=== PATIENT | female | born 1960 | race Caucasian/White ===

== ENCOUNTER 2020-03-11 13:49 | Inpatient (IN) | payer OTHER, SELFPAY ==
[2020-03-11] VITALS (56 sets, daily range): BP systolic 115–139; BP diastolic 72–95; PULSE 18–251; RESP 15–37; TEMP 36.8–37.7; O2SAT 78–98
--- NOTE | ~2020-03-11 | US_ITS ---
EXAMINATION: US right upper quadrant EXAM DATE: 03/16/2020 11:19 INDICATION: Right upper quadrant pain. TECHNIQUE: Multiple grayscale and Doppler images of the abdomen right upper quadrant were obtained (b y a technologist who performed the scan) and subsequently reviewed. There is no prior study for opal chatterjee. FINDINGS: The pancreatic head and body are normal in appearance. The pancreatic tail is not visualized. The l iver has normal echogenicity and contour. There are no focal liver lesions identified. There is no evidence of intrahepatic biliary duct dilation. Portal venous flow was seen in the hepatopedal, nor mal direction and has normal Doppler waveform. No right-sided hydronephrosis. Common bile duct measures 4 mm, which is normal. The gallbladder wall is normal in thickness, with ex pected amount of distention. No sonographic evidence of pericholecystic fluid. There is cholelithia sis. Technologist performing exam reports patient did not demonstrate sonographic Juarez's sign. P kendrick note that this sign is less reliable in patients who have received pain medication. IMPRESSION: 1. Cholelithiasis. Reviewed, dictated and finalized at location B. TIC DESIGN APPLIER IMPRESSION: 1. Cholelithiasis.
--- NOTE | ~2020-03-11 | XR_ITS ---
XR chest 1V portable DATE: 03/11/2020 14:55 INDICATION: Fever, dry cough. Positive Covid. TECHNIQUE: Portable upright AP chest on 03/11/2020 at 1454 hours COMPARISON: 01/11/2014 PA and lateral chest FINDINGS: There are patchy infiltrates in both mid and lower lung zones, relatively sparing the apice s. No pleural effusion or pulmonary vascular congestion or pneumothorax. Normal heart size. No hilar or mediastinal enlargement is evident. IMPRESSION: Patchy bilateral mid and lower lung infiltrates consistent with bilateral pneumonia Reviewed, dictated and finalized at location A. IMPRESSION: Patchy bilateral mid and lower lung infiltrates consistent with liz ateral pneumonia
--- NOTE | ~2020-03-11 | NM_ITS ---
NM pulmonary perfusion INDICATION: Cough, fever and low oxygen saturation. TECHNIQUE: Ventilation scan not performed. 4.9 MCi Tc 99m MAA was injected intravenously for perfusio n images. Multiple images were then acquired. COMPARISON: Chest x-ray dated 03/11/2020 FINDINGS: Comparison chest x-ray demonstrates pneumonia in the mid and lower lung zones. There are sm [id number] bilateral lateral perfusion abnormality of the left mid, upper and lower as well a s the right mid and lower lung. IMPRESSION: 1: Multiple bilateral perfusion defects corresponding to chest x-ray abnormalities. Reviewed, dictated and finalized at location A. IMPRESSION: 1: Multiple bilateral perfusion defects corresponding to chest x-ray abnormalit ies.
--- NOTE | ~2020-03-11 | XR_ITS ---
EXAMINATION: XR chest 1V portable INDICATION: Pneumonia and shortness of breath TECHNIQUE: Portable AP chest at 0856 hours COMPARISON: 03/11/2020 FINDINGS: There are diffuse opacities of the lungs without significant change. No pleural effusion or pneumothorax is identified. The cardiomediastinal silhouette is stable. IMPRESSION: 1. Stable diffuse lung disease, consistent with pneumonia. Reviewed, dictated and finalized at location A.
[2020-03-11 14:40] LABS: Basophils Percent Auto 0.1 % (0.2-1.2); Hematocrit 44.3 % (37.0-47.0); Immature Granulocyte Absolute 0.04 K/mm3 (0.00-0.031); Immature Granulocyte Percent A 0.6 % (0-0.5); Lymphocytes Absolute Auto 0.69 K/mm3 (0.9-3.2); Lymphocytes Percent Auto 9.7 % (18.3-44.2); Mean Corpuscular HGB Conc 33.9 g/dl (32-36); Mean Corpuscular Hemoglobin 30.7 pg (26-34); Mean Corpuscular Volume 90.6 fl (80-100); Mean Platelet Volume 9.9 fl (7.4-10.4); Monocytes Absolute Auto 0.5 K/mm3 (0.1-0.6); Neutrophils Absolute Auto 5.9 K/mm3 (1.3-6.7); Neutrophils Percent Auto 82.6 % (45.5-73.1); Platelet Count Result 258 k/mm3 (150-375); Red Blood Count 4.89 M/mm3 (4.2-5.4); Red Cell Distribution Width 13.4 % (11.5-14.5); White Blood Count 7.2 K/mm3 (4.5-10.0)
[2020-03-11 14:46] LABS: Add Urine Microscopic? YES; Appearance Urine Cloudy (Clear); Bacteria Urine Trace /hpf; Bilirubin Urine Negative (Negative); Blood Urine 1+ (Negative); Color Urine Yellow (Yellow); Glucose Urine UA Negative (Negative); Ketones Urine Trace mg/dL (Negative); Leukocyte Esterase Ur Negative LEU/UL (Negative); Mucus Urine Rare /lpf; Nitrate Urine Negative (Negative); Protein Urine 2+ mg/dL (Negative); RBC Urine 0-2 /hpf (0-2); Squamous Epithelial Cell Urine Occasional /hpf (Few); Urobilinogen Urine Negative mg/dL (<2.0); WBC Urine 0-3 /hpf
[2020-03-11 14:50] LABS: D Dimer 1.12 ug/mL (<0.48)
[2020-03-11 14:53] LABS: Alanine Aminotransferase 63 U/L (4-35); Albumin Level 3.7 g/dL (3.5-5.1); Alkaline Phosphatase 109 U/L (38-126); Anion Gap 10 mmol/L (8-16); Aspartate Amino Transferase 71 U/L (14-36); Blood Urea Nitrogen 12 mg/dL (7-17); Calcium 8.6 mg/dL (8.4-10.2); Carbon Dioxide 30 mmol/L (22-30); Chloride 97 mmol/L (98-107); Estimated CRCL calculation 67 ml/min; Estimated Glomerular Filt Rate > 60; Glucose 128 mg/dL (65-105); Potassium 3.2 mmol/L (3.4-5.0); Sodium 137 mmol/L (137-145)
--- NOTE | 2020-03-11 15:31 | PC.NURSE ---
Pt to CT at this time. This RN to admin NS bolus as ordered upon return from CT. Pt updated.
[2020-03-11] MEDS: SODIUM CHLORIDE 0.9% IV 1,000 ML 999 ML IV CONT (15:51)
--- NOTE | 2020-03-11 16:15 | ED.FEVER ---
HPI - Fever General Chief Complaint: Fever Stated Complaint: Covid + Time Seen by Provider: 03/11/20 14:01 Source: patient Mode of arrival: ambulatory Limitations: no limitations History of Present Illness HPI Narrative: Patient presents with chief complaints of fatigue and intermittent fever over the past 2 weeks. Patient states on the 16 she tested positive for Covid and has not yet had 3 days fever free. So she does not feel relief from quarantine. She states that this time she does not feel short of breath nor have chest pain. She states she has been taking Tylenol continuously for her fever but has not been taking ibuprofen. Patient states that she feels that she should be improving more so than she has been has not began to the emergency department. Patient states she has been eating as much as normal and has been trying to drink fluids. Related Data Home Medications Medication Instructions Recorded Confirmed No Home Medications 03/11/20 Allergies Allergy/AdvReac Type Severity Reaction Status Date / Time aspirin Allergy Mild Other Verified 03/11/20 14:07 Penicillins Allergy Mild Other Verified 03/11/20 14:07 codeine Allergy Gastrointestinal Verified 03/11/20 14:07 Upset iodine Allergy Rash Verified 03/11/20 14:08 Latex, Natural Rubber Allergy Rash Verified 03/11/20 14:07 Review of Systems Review of Systems: Narrative: CONSTITUTIONAL: Reports fatigue and intermittent fever denies chills, or sweats. EYES: Denies visual changes, redness, or discharge. ENT: Denies rhinorrhea, congestion, sore throat, or otalgia. CARDIOVASCULAR: Denies chest pain, palpitations, or edema. RESPIRATORY: Denies cough or dyspnea. GASTROINTESTINAL: Denies abdominal pain, nausea, vomiting, or diarrhea. GENITOURINARY: Denies dysuria or hematuria. SKIN: Denies rash or itching. MUSCULOSKELETAL: Denies back pain, myalgia, or joint pain NEUROLOGIC: Denies headache, numbness, dizziness, or weakness. PSYCHIATRIC: Denies anxiety or depression. Exam Narrative: Exam Narrative: GENERAL: Well-appearing, well-nourished. HEAD: Normocephalic, atraumatic. EYES: PERRLA and EOMI. ENT: Nares clear, no rhinorrhea or epistaxis. Mucous membranes moist. Bilateral TMs pearly cha nonbulging NECK: Supple. No adenopathy or masses. No vertebral tenderness or loss of ROM. CHEST: Clear to auscultation. No respiratory distress. No wheezes rales or rhonchi. Not tachypneic. Patient's oxygen saturation is going up to 97% on room air while sitting up taking deep breaths. HEART: Regular rate and rhythm. ABDOMEN: Soft, nontender, nondistended, normal active bowel sounds. No bruises noted. EXTREMITIES: No acute changes in ROM. No edema. SKIN: Warm, dry, no rash. NEURO: No focal deficits. Alert and oriented x3. PSYCH: Normal mood and affect. Course Vital Signs Vital signs: Vital Signs Temperature 98.3 F 03/11/20 13:59 Pulse Rate 18 L 03/11/20 13:59 Respiratory Rate 20 03/11/20 13:59 Blood Pressure 131/90 03/11/20 13:59 Pulse Oximetry 93 03/11/20 13:59 Temperature 98.3 F 03/11/20 13:59 Pulse Rate 120 H 03/11/20 20:02 Respiratory Rate 26 H 03/11/20 20:02 Blood Pressure 133/84 03/11/20 19:16 Pulse Oximetry 92 03/11/20 20:02 MDM - Fever MDM Narrative Medical decision making narrative: Patient tachycardic and D-dimer elevated patient is allergic to iodine so she must have VQ scan and lieu of CTA. Patient is not hypoxic and ambulates without difficulty. Patient is receiving fluids. Patient denies any other needs or concerns at this time. Consult with Dr. Townsend for patient admission as I have concerns because the patient drops into hypoxic areas in the high 80s and 90s especially with ambulation. Although the patient states she does not feel short of breath she is both tachycardic as well as showing low SPO2 numbers. Dr. Townsend states the patient is not a candidate for remdesivir or Decadron at this time. He ac
--- NOTE | 2020-03-11 20:06 | PC.NURSE ---
1899 - Pt ambulated to restroom. Upon return to ER room increased SOB reported and O2 saturation on RA noted to be 86%, HR 125. Pt placed on 2L NC and O2 saturation at rest 98%. 1999 - Pt ambulated to restroom and back to ER stretcher. Pt's O2 saturation noted to 88% on RA after exertion, HR 125. HR decreased to 118 and O2 saturation returned to 94% on RA.
[2020-03-11] MEDS: POTASSIUM CHLORIDE 20 MEQ PACKET (FOR LIQUID) 40 MEQ PO (21:45)
--- NOTE | 2020-03-11 22:05 | ECG_ITS ---
Measurements Intervals [place] Rate: 232 P: [place]: 0 QRS: 34 QRSD: 188 T: 0 QT: 175 QTc: 344 Interpretive Statements SUPRAVENTRICULAR TACHYCARDIA INCOMPLETE RIGHT BUNDLE BRANCH BLOCK ST ABNORMALITY IN ANTEROLAT/HIGH LAT LEADS- CONSIDER ISCHEMIA OR PROBABLY RATE RELATED BASELINE WANDER- AVL, AVF ABNORMAL ECG Electronically Signed On 03-12-2020 7:09:10 CDT by Giuseppe Kwon D.O.
[2020-03-11] MEDS: ADENOSINE IV SOLN 6 MG/2 ML VIAL IV PUSH (22:18)
[2020-03-11] MEDS: SODIUM CHLORIDE 0.9% IV 1,000 ML 999 ML (22:19)
[2020-03-11] MEDS: METOPROLOL TARTRATE INJ 5 MG/5 ML VIAL (22:21)
[2020-03-11] MEDS: METOPROLOL TARTRATE INJ 5 MG/5 ML VIAL 2.5 MG IV PUSH (22:27)
--- NOTE | 2020-03-11 22:33 | ECG_ITS ---
Measurements Intervals [place] Rate: 112 P: 42 NE: 124 QRS: 54 QRSD: 105 T: 13 QT: 328 QTc: 448 Interpretive Statements SINUS TACHYCARDIA INCOMPLETE RIGHT BUNDLE BRANCH BLOCK BORDERLINE T WAVE ABNORMALITY- INFERIOR LEADS BASELINE WANDER- I, II, III, V2 ABNORMAL ECG Electronically Signed On 03-12-2020 7:10:07 CDT by Giuseppe Kwon D.O.
--- NOTE | 2020-03-11 22:45 | PM.IMHP ---
H&P: HPI History of Present Illness Date/Time: 03/11/20 22:45 Chief complaint: COVID Pneumonia Narrative: This is a 59-year-old female with no significant past medical history who presented to the hospital [facility] with intermittent fevers, increased shortness of breath, dry sporadic cough and generalized weakness for the past 2 weeks. Associated symptoms included diarrhea and diaphoresis. The patient tested positive for stuart virus on February 28, 2020. the patient was evaluated emergency room and did not require any supplemental oxygen. She was found to be tachycardic with heart rate in the 120s. D-dimer was elevated and the patient underwent a V/Q study as she is allergic to iodine. V/Q scan demonstrated multiple bilateral perfusion defects corresponding to chest x-ray abnormalities. chest x-ray revealed patchy bilateral mid and lower lung infiltrates consistent with bilateral pneumonia. the patient was treated with oral potassium secondary to hypokalemia and shortly afterwards developed supraventricular tachycardia. She was treated with adenosine 6 mg as well as metoprolol IV which converted the patient back into a sinus rhythm. During her episode of SVT the patient did experience palpitations but denied any significant chest pain. She has no other complaints. Review of Systems Review of Systems: All systems reviewed & are unremarkable except as noted in HPI and below PMFSH Surgical History Surgical History History of bilateral knee replacement Social History Social History Smoking status: Never smoker Alcohol intake: never Substance use: never Substance use type: does not use Spiritual care concerns: No Comments Past medical/surgica/family medical histories are reviewed and noncontributory. Meds Home Medications and Allergies Home Medications Medication Instructions Recorded Confirmed Type Brittany 128 1 drp OPHTHALMIC (EYE) QID 03/13/20 03/13/20 History apixaban 5 mg PO BID #60 tablet 03/16/20 Rx apixaban [Eliquis] 10 mg PO Q12HR #22 tablet 03/16/20 Rx benzonatate 100 mg PO BID PRN #20 cap 03/16/20 Rx guaifenesin 600 mg PO BID #125 ml 03/16/20 Rx levofloxacin 750 mg PO DAILY #5 tablet 03/16/20 Rx Allergies Allergy/AdvReac Type Severity Reaction Status Date / Time aspirin Allergy Mild Other Verified 03/14/20 10:34 Penicillins Allergy Mild Other Verified 03/14/20 10:34 codeine Allergy Gastrointestinal Verified 03/14/20 10:34 Upset iodine Allergy Rash Verified 03/14/20 10:34 Latex, Natural Rubber Allergy Rash Verified 03/14/20 10:34 Vital Signs Vital Signs - 24 hr 03/11/20 13:59 03/11/20 14:05 03/11/20 14:15 Temperature 36.8 C Pulse Rate 114 H 111 H 112 H Respiratory Rate 19 20 18 Blood Pressure 128/95 H 133/95 H Pulse Oximetry 94 94 92 03/11/20 14:17 03/11/20 14:30 03/11/20 14:36 Temperature Pulse Rate 111 H 108 H Respiratory Rate 22 H 17 Blood Pressure Pulse Oximetry 92 94 92 03/11/20 15:34 03/11/20 15:45 03/11/20 16:00 Temperature Pulse Rate 109 H 110 H 112 H Respiratory Rate 23 H 21 H 22 H Blood Pressure Pulse Oximetry 93 90 93 03/11/20 16:15 03/11/20 16:19 03/11/20 16:30 Temperature Pulse Rate 107 H 105 H 108 H Respiratory Rate 24 H 22 H 26 H Blood Pressure 129/89 Pulse Oximetry 90 93 92 03/11/20 16:31 03/11/20 16:45 03/11/20 16:46 Temperature Pulse Rate 104 H 112 H 110 H Respiratory Rate 21 H 19 24 H Blood Pressure 126/84 126/88 Pulse Oximetry 93 93 89 L 03/11/20 17:01 03/11/20 17:02 03/11/20 17:15 Temperature Pulse Rate 104 H 105 H 106 H Respiratory Rate 22 H 24 H 22 H Blood Pressure 129/82 Pulse Oximetry 92 92 92 03/11/20 17:16 03/11/20 17:30 03/11/20 17:31 Temperature Pulse Rate 104 H 107 H 105 H Respiratory Rate 30 H 22 H 37 H Blood Pressure 126/79 123/81 Pulse Oximetry
--- NOTE | 2020-03-11 22:48 | PC.NURSE ---
2220 - Pt's HR noted to be 250, SVT. MD aware. EKG and NS ordered. pt reports feeling a flutter in her chest but denies any pain. No PMH per pt.
--- NOTE | 2020-03-11 22:56 | PC.NURSE ---
JESÚS faxed to ICU
--- NOTE | 2020-03-11 23:13 | PC.NURSE ---
Report called to [facility].
[2020-03-12] VITALS (14 sets, daily range): BP systolic 107–138; BP diastolic 73–88; PULSE 85–115; RESP 16–25; TEMP 35.7–37.8; O2SAT 88–96; BMI 27.4
--- NOTE | 2020-03-12 00:02 | ADMGEN ---
This patient, Viri Torres, was admitted to Intensive Care Unit-6. Patient/family oriented to hospital policies and general routines including ID bracelet, bed and alarms, visiting hours, pain management, procedures, bathroom and other care routines, personal items, smoking policy, room service/diet, and visiting hours. Information on how to activate the Rapid Response Team has been discussed. Patient/Family are encouraged to report perceived risks to care and to ask questions if they do not understand what they are told or what they should do.
[2020-03-12] MEDS: ACETAMINOPHEN 500 MG TABLET 1000 MG PO ×4 (03:43→20:43)
[2020-03-12 04:33] LABS: Alanine Aminotransferase 77 U/L (4-35)
[2020-03-12] MEDS: BENZONATATE 100 MG CAPSULE PO (10:00)
[2020-03-12] MEDS: DEXAMETHASONE SOD PHOS INJ 4 MG/ML VIAL 6 MG IV PUSH (10:01)
[2020-03-12 10:03] LABS: Anion Gap 10 mmol/L (8-16); Blood Urea Nitrogen 12 mg/dL (7-17); Calcium 8.1 mg/dL (8.4-10.2); Carbon Dioxide 20 mmol/L (22-30); Chloride 110 mmol/L (98-107); Estimated CRCL calculation 73 ml/min; Estimated Glomerular Filt Rate > 60; Glucose 108 mg/dL (65-105); Potassium 3.5 mmol/L (3.4-5.0); Sodium 140 mmol/L (137-145)
--- NOTE | 2020-03-12 14:50 | PC.NURSE ---
Patient deciding if to take Remdesivir.
--- NOTE | 2020-03-12 16:51 | PM.IMPN ---
Progress Note: A&P Assessment and Plan (1) Pneumonia due to COVID-19 virus: Code(s): U07.1 - COVID-19; J12.89 - Other viral pneumonia Status: Acute Assessment and Plan: 03/12/20 16:51 patient is a 59-year-old female was positive COVID-19 on 02/27 and since then patient having fever fatigue and hypoxia with exertion however at rest patient does not require any oxygen, we have started the patient on dexamethasone and remdesivir even though sees outside the window the treatment an effort to to help patient improve faster, patient being hypoxic with exertion and elevated D-dimer because scan was done which does show the probability of pulmonary emboli, and patient with COVID him high risk of pulmonary emboli will start the patient on Lovenox, emergency depart patient was tachycardia adenosine was negative this is all her SVT, most likely secondary to hypoxia fever and fatigue, patient has remained stable, will continue to monitor the the plan is to have 2 days of without fever and on room air before discharging home, once clinically stable will have a PT OT evaluate the patient. (2) Sepsis: Qualifiers: Sepsis type: sepsis due to unspecified organism Sepsis acute organ dysfunction status: without acute organ dysfunction Qualified Code(s): A41.9 - Sepsis, unspecified organism Code(s): A41.9 - Sepsis, unspecified organism Status: Acute Assessment and Plan: most likely secondary to COVID-19 pneumonia (3) Supraventricular tachycardia: Code(s): I47.1 - Supraventricular tachycardia Status: Acute Assessment and Plan: most likely secondary to fever fatigue and hypoxia patient was treated with adenosine, now on metoprolol will monitor (4) Elevated d-dimer: Code(s): R79.89 - Other specified abnormal findings of blood chemistry Status: Acute Assessment and Plan: V/Q scan shows pulmonary emboli and patient with a COVID are at high risk of blood clot will treat with Lovenox and further recommendation to Subjective Date/time seen: 03/12/20 16:51 patient is a 59-year-old female was positive COVID-19 on 02/27 and since then patient having fever fatigue and hypoxia with exertion however at rest patient does not require any oxygen, we have started the patient on dexamethasone and remdesivir even though sees outside the window the treatment an effort to to help patient improve faster, patient being hypoxic with exertion and elevated D-dimer because scan was done which does show the probability of pulmonary emboli, and patient with COVID him high risk of pulmonary emboli will start the patient on Lovenox, emergency depart patient was tachycardia adenosine was negative this is all her SVT, most likely secondary to hypoxia fever and fatigue, patient has remained stable, will continue to monitor the the plan is to have 2 days of without fever and on room air before discharging home, once clinically stable will have a PT OT evaluate the patient. Review of Systems Review of Systems: All systems reviewed & are unremarkable except as noted in HPI and below Exam Narrative: Exam Narrative: Patient is comfortable, NAD HEENT: eyes are clear and none icteric LUNGS: normal respiratory effort ABD: not distended Lower extremities: no edema SKIN: nonjaundiced Neuro: grossly intact and normal speech. Objective Data Vital Signs Vital Signs: Vital Signs - 24 hr 03/11/20 17:01 03/11/20 17:02 03/11/20 17:15 Temperature Pulse Rate 104 H 105 H 106 H Respiratory Rate 22 H 24 H 22 H Blood Pressure 129/82 Pulse Oximetry 92 92 92 03/11/20 17:16 03/11/20 17:30 03/11/20 17:31 Temperature Pulse Rate 104 H 107 H 105 H Respiratory Rate 30 H 22 H 37 H Blood Pressure 126/79 123/81 Pulse Oximetry 91 91 91 03/11/20 17:45 03/11/20 17:46 03/11/20 18:00 Temperature Pulse Rate 112 H 107 H 112 H Respiratory Rate 23 H 33 H 21 H Blood Pres
[2020-03-12] MEDS: REMDESIVIR 200 MG/NS 250 ML 200 MG/250 ML BAG 250 MG IVPB (18:27)
[2020-03-12] MEDS: ENOXAPARIN 80 MG/0.8 ML SYRINGE 73 MG SUB-Q (18:30)
[2020-03-13] VITALS (10 sets, daily range): BP systolic 121–142; BP diastolic 82–96; PULSE 73–104; RESP 16–21; TEMP 35.7–36.8; O2SAT 93–97
[2020-03-13] MEDS: ACETAMINOPHEN 500 MG TABLET 1000 MG PO (03:50)
[2020-03-13 04:32] LABS: Alanine Aminotransferase 136 U/L (4-35)
[2020-03-13] MEDS: ENOXAPARIN 80 MG/0.8 ML SYRINGE 73 MG SUB-Q ×2 (05:26→17:30)
[2020-03-13] MEDS: BENZONATATE 100 MG CAPSULE PO ×2 (08:26→20:10)
[2020-03-13] MEDS: DEXAMETHASONE SOD PHOS INJ 4 MG/ML VIAL 6 MG IV PUSH (08:26)
[2020-03-13 11:16] LABS: Hematocrit 43.1 % (37.0-47.0); Hemoglobin 14.7 g/dL (12.0-15.0); Mean Corpuscular HGB Conc 34.1 g/dl (32-36); Mean Corpuscular Hemoglobin 30.4 pg (26-34); Mean Corpuscular Volume 89.2 fl (80-100); Platelet Count Result 368 k/mm3 (150-375); Red Blood Count 4.83 M/mm3 (4.2-5.4); Red Cell Distribution Width 13.3 % (11.5-14.5); White Blood Count 8.8 K/mm3 (4.5-10.0)
[2020-03-13 11:27] LABS: Anion Gap 9 mmol/L (8-16); Blood Urea Nitrogen 13 mg/dL (7-17); Calcium 8.9 mg/dL (8.4-10.2); Carbon Dioxide 28 mmol/L (22-30); Chloride 105 mmol/L (98-107); Estimated CRCL calculation 84 ml/min; Estimated Glomerular Filt Rate > 60; Glucose 166 mg/dL (65-105); Potassium 3.6 mmol/L (3.4-5.0); Sodium 142 mmol/L (137-145)
--- NOTE | 2020-03-13 16:10 | PC.NURSE ---
This patient, Viri Torres, was transferred to [facility] on 03/13/20 at 1610 via wheelchair. Personal belongings sent with patient. Report given to JUAN JOSE Romano. Appropriate documentation sent with patient.
--- NOTE | 2020-03-13 16:14 | PC.NURSE ---
This patient, Viri Torres, was received from ICU on 03/13/20 at 1614. Personal belongings list checked and signed. Patient/family oriented to unit policies and routines
--- NOTE | 2020-03-13 16:15 | PM.IMPN ---
Progress Note: A&P Assessment and Plan (1) Pneumonia due to COVID-19 virus: Code(s): U07.1 - COVID-19; J12.89 - Other viral pneumonia Status: Acute Assessment and Plan: 03/13/20 16:15 patient is a 59-year-old female was positive COVID-19 on 02/27 and since then patient having fever fatigue and hypoxia with exertion however at rest patient does not require any oxygen, we have started the patient on dexamethasone and remdesivir even though she is outside the window of the treatment in an effort to to help patient improve faster, patient being hypoxic with exertion and elevated D-dimer, V/Q scan was done which does showed the probability of pulmonary emboli, and patient with COVID has high risk of pulmonary emboli will start the patient on Lovenox, will switch her over to oral anticoagulation tomorrow after discussing with primary health care nurse, in emergency depart patient was tachycardia adenosine was given for SVT, and heart rate tranded down, most likely secondary to hypoxia fever and fatigue, patient has remained stable, will continue to monitor the the plan is to have 2 days of without fever and on room air before discharging home, once clinically stable will have a PT OT evaluate the patient. patient clinically stable will transfer the patient out of ICU to medical floor. (2) Sepsis: Qualifiers: Sepsis acute organ dysfunction status: without acute organ dysfunction Sepsis type: sepsis due to unspecified organism Qualified Code(s): A41.9 - Sepsis, unspecified organism Code(s): A41.9 - Sepsis, unspecified organism Status: Acute Assessment and Plan: most likely secondary to COVID-19 pneumonia (3) Supraventricular tachycardia: Code(s): I47.1 - Supraventricular tachycardia Status: Acute Assessment and Plan: most likely secondary to fever fatigue and hypoxia patient was treated with adenosine, now on metoprolol will monitor (4) Elevated d-dimer: Code(s): R79.89 - Other specified abnormal findings of blood chemistry Status: Acute Assessment and Plan: V/Q scan shows pulmonary emboli and patient with a COVID are at high risk of blood clot will treat with Lovenox and further recommendation to Additional Plan date of service was March 11, 2020 at approximately 10:00 p.m. Subjective Date/time seen: 03/13/20 16:15 patient is a 59-year-old female was positive COVID-19 on 02/27 and since then patient having fever fatigue and hypoxia with exertion however at rest patient does not require any oxygen, we have started the patient on dexamethasone and remdesivir even though she is outside the window of the treatment in an effort to to help patient improve faster, patient being hypoxic with exertion and elevated D-dimer, V/Q scan was done which does showed the probability of pulmonary emboli, and patient with COVID has high risk of pulmonary emboli will start the patient on Lovenox, will switche her over to oral anticoagulation tomorrow after discussing with primary health care nurse, in emergency depart patient was tachycardia adenosine was given for SVT, and heart rate tranded down, most likely secondary to hypoxia fever and fatigue, patient has remained stable, will continue to monitor the the plan is to have 2 days of without fever and on room air before discharging home, once clinically stable will have a PT OT evaluate the patient. Review of Systems Review of Systems: All systems reviewed & are unremarkable except as noted in HPI and below Exam Narrative: Exam Narrative: Patient is comfortable, NAD HEENT: eyes are clear and none icteric LUNGS: normal respiratory effort ABD: not distended Lower extremities: no edema SKIN: nonjaundiced Neuro: grossly intact and normal speech. Objective Data Vital Signs Vital Signs: Vital Signs - 24 hr 03/12/20 18:00 03/12/20 20:00 03/12/20 22:00 Temperature 97.5 F L Pulse Rate 97 112 H 99 Re
[2020-03-13] MEDS: REMDESIVIR 100 MG/NS 250 ML 100 MG/250 ML BAG 150 MG IVPB (17:30)
[2020-03-13] MEDS: SODIUM CHLORIDE 2% OP SOLN 15 ML BTL 1 DROP EACH EYE ×2 (17:30→20:11)
[2020-03-14] VITALS (7 sets, daily range): BP systolic 117–148; BP diastolic 75–97; PULSE 75–126; RESP 14–16; TEMP 36.3–36.7; O2SAT 93–95
[2020-03-14] MEDS: ENOXAPARIN 80 MG/0.8 ML SYRINGE 73 MG SUB-Q ×2 (05:38→18:35)
[2020-03-14 06:19] LABS: Basophils Percent Auto 0.2 % (0.2-1.2); Hematocrit 40.8 % (37.0-47.0); Immature Granulocyte Percent A 1.1 % (0-0.5); Lymphocytes Absolute Auto 0.85 K/mm3 (0.9-3.2); Lymphocytes Percent Auto 9.1 % (18.3-44.2); Mean Corpuscular HGB Conc 34.3 g/dl (32-36); Mean Corpuscular Hemoglobin 30.2 pg (26-34); Mean Corpuscular Volume 88.1 fl (80-100); Mean Platelet Volume 10.2 fl (7.4-10.4); Monocytes Absolute Auto 0.6 K/mm3 (0.1-0.6); Monocytes Percent Auto 6.3 % (2.6-8.5); Neutrophils Absolute Auto 7.8 K/mm3 (1.3-6.7); Neutrophils Percent Auto 83.3 % (45.5-73.1); Platelet Count Result 400 k/mm3 (150-375); Red Blood Count 4.63 M/mm3 (4.2-5.4); Red Cell Distribution Width 13.2 % (11.5-14.5); White Blood Count 9.3 K/mm3 (4.5-10.0)
[2020-03-14 06:26] LABS: Alanine Aminotransferase 94 U/L (4-35)
[2020-03-14 06:28] LABS: Alanine Aminotransferase 91 U/L (4-35); Alkaline Phosphatase 110 U/L (38-126); Anion Gap 3 mmol/L (8-16); Aspartate Amino Transferase 52 U/L (14-36); Bilirubin,Total 0.6 mg/dL (0.2-1.3); Blood Urea Nitrogen 14 mg/dL (7-17); Calcium 8.7 mg/dL (8.4-10.2); Carbon Dioxide 36 mmol/L (22-30); Chloride 103 mmol/L (98-107); Estimated CRCL calculation 84 ml/min; Estimated Glomerular Filt Rate > 60; Glucose 132 mg/dL (65-105); Potassium 3.8 mmol/L (3.4-5.0); Sodium 142 mmol/L (137-145)
[2020-03-14] MEDS: DEXAMETHASONE SOD PHOS INJ 4 MG/ML VIAL 6 MG IV PUSH (08:59)
[2020-03-14] MEDS: SODIUM CHLORIDE 2% OP SOLN 15 ML BTL 1 DROP EACH EYE ×2 (08:59→18:35)
[2020-03-14] MEDS: BENZONATATE 100 MG CAPSULE PO (09:11)
--- NOTE | 2020-03-14 16:14 | PM.IMPN ---
Progress Note: A&P Assessment and Plan (1) Pneumonia due to COVID-19 virus: Code(s): U07.1 - COVID-19; J12.89 - Other viral pneumonia Status: Acute Assessment and Plan: 03/14/20 16:14 patient is a 59-year-old female was positive COVID-19 on 02/27 and since then patient having fever fatigue and hypoxia with exertion however at rest patient does not require any oxygen, we have started the patient on dexamethasone and remdesivir even though she is outside the window of the treatment in an effort to to help patient improve faster, patient being hypoxic with exertion and elevated D-dimer, V/Q scan was done which does showed the probability of pulmonary emboli, and patient with COVID has high risk of pulmonary emboli will start the patient on Lovenox, will switch her over to oral anticoagulation tomorrow after discussing with career placement specialist, in emergency depart patient was tachycardia adenosine was given for SVT, and heart rate tranded down, most likely secondary to hypoxia fever and fatigue, today repeat chest x-ray shows persisting pnuemonia most likely covid pneumonia however to cover for any secondary bacterial pneumonia as patient has a fever and shortness of breath with exertion, will start the patient on levofloxacin, patient has remained stable, will continue to monitor the the plan is to have 2 days of without fever and on room air before discharging home, once clinically stable will have a PT OT evaluate the patient. (2) Sepsis: Qualifiers: Sepsis type: sepsis due to unspecified organism Sepsis acute organ dysfunction status: without acute organ dysfunction Qualified Code(s): A41.9 - Sepsis, unspecified organism Code(s): A41.9 - Sepsis, unspecified organism Status: Acute Assessment and Plan: most likely secondary to COVID-19 pneumonia (3) Supraventricular tachycardia: Code(s): I47.1 - Supraventricular tachycardia Status: Acute Assessment and Plan: most likely secondary to fever fatigue and hypoxia patient was treated with adenosine, now on metoprolol will monitor (4) Elevated d-dimer: Code(s): R79.89 - Other specified abnormal findings of blood chemistry Status: Acute Assessment and Plan: V/Q scan shows pulmonary emboli and patient with a COVID are at high risk of blood clot will treat with Lovenox and further recommendation to Additional Plan date of service was March 11, 2020 at approximately 10:00 p.m. Subjective Date/time seen: 03/14/20 16:14 patient is a 59-year-old female was positive COVID-19 on 02/27 and since then patient having fever fatigue and hypoxia with exertion however at rest patient does not require any oxygen, we have started the patient on dexamethasone and remdesivir even though she is outside the window of the treatment in an effort to to help patient improve faster, patient being hypoxic with exertion and elevated D-dimer, V/Q scan was done which does showed the probability of pulmonary emboli, and patient with COVID has high risk of pulmonary emboli will start the patient on Lovenox, will switch her over to oral anticoagulation tomorrow after discussing with career placement specialist, in emergency depart patient was tachycardia adenosine was given for SVT, and heart rate tranded down, most likely secondary to hypoxia fever and fatigue, today repeat chest x-ray shows persisting pnuemonia most likely covid pneumonia however to cover for any secondary bacterial pneumonia as patient has a fever and shortness of breath with exertion, will start the patient on levofloxacin, patient has remained stable, will continue to monitor the the plan is to have 2 days of without fever and on room air before discharging home, once clinically stable will have a PT OT evaluate the patient. Review of Systems Review of Systems: All systems reviewed & are unremarkable except as noted in HPI and below Exam Narrative: Exam Narrativ
[2020-03-14] MEDS: REMDESIVIR 100 MG/NS 250 ML 100 MG/250 ML BAG 250 MG IVPB (18:34)
[2020-03-15] VITALS (7 sets, daily range): BP systolic 121–168; BP diastolic 78–102; PULSE 74–102; RESP 16–22; TEMP 36.5–36.8; O2SAT 93–95
--- NOTE | 2020-03-15 01:48 | PC.NURSE ---
Daylight Savings Time For Daylight Savings Time Ending in the Fall - Clocks are moved back. For Daylight Savings Time Beginning in the Spring - Clocks are moved ahead. For [facility], the time of change occurs at 0200 hrs. Time is taken from the oil prospecting observer. This entry on the patient's chart recognizes the change in time reflected during documentation. Example: 2 entries for vital signs may be charted for 0200 hrs.
[2020-03-15 06:28] LABS: Basophils Percent Auto 0.1 % (0.2-1.2); Hematocrit 39.3 % (37.0-47.0); Hemoglobin 13.4 g/dL (12.0-15.0); Immature Granulocyte Absolute 0.11 K/mm3 (0.00-0.031); Immature Granulocyte Percent A 1.3 % (0-0.5); Lymphocytes Absolute Auto 0.89 K/mm3 (0.9-3.2); Lymphocytes Percent Auto 10.6 % (18.3-44.2); Mean Corpuscular HGB Conc 34.1 g/dl (32-36); Mean Corpuscular Hemoglobin 30.1 pg (26-34); Mean Corpuscular Volume 88.3 fl (80-100); Mean Platelet Volume 9.8 fl (7.4-10.4); Monocytes Absolute Auto 0.8 K/mm3 (0.1-0.6); Monocytes Percent Auto 9.3 % (2.6-8.5); Neutrophils Absolute Auto 6.6 K/mm3 (1.3-6.7); Neutrophils Percent Auto 78.7 % (45.5-73.1); Platelet Count Result 379 k/mm3 (150-375); Red Blood Count 4.45 M/mm3 (4.2-5.4); Red Cell Distribution Width 13.1 % (11.5-14.5); White Blood Count 8.4 K/mm3 (4.5-10.0)
[2020-03-15 06:50] LABS: Alanine Aminotransferase 101 U/L (4-35); Albumin Level 2.8 g/dL (3.5-5.1); Alkaline Phosphatase 101 U/L (38-126); Anion Gap 5 mmol/L (8-16); Aspartate Amino Transferase 63 U/L (14-36); Bilirubin,Total 0.6 mg/dL (0.2-1.3); Blood Urea Nitrogen 14 mg/dL (7-17); Calcium 8.3 mg/dL (8.4-10.2); Carbon Dioxide 33 mmol/L (22-30); Chloride 101 mmol/L (98-107); Estimated CRCL calculation 84 ml/min; Estimated Glomerular Filt Rate > 60; Glucose 114 mg/dL (65-105); Potassium 3.3 mmol/L (3.4-5.0); Sodium 139 mmol/L (137-145)
[2020-03-15] MEDS: ENOXAPARIN 80 MG/0.8 ML SYRINGE 73 MG SUB-Q (07:02)
[2020-03-15] MEDS: BENZONATATE 100 MG CAPSULE PO ×2 (08:17→20:14)
[2020-03-15] MEDS: DEXAMETHASONE SOD PHOS INJ 4 MG/ML VIAL 6 MG IV PUSH (08:17)
[2020-03-15] MEDS: POTASSIUM CHLORIDE 20 MEQ TABLET 40 MEQ PO (12:44)
--- NOTE | 2020-03-15 16:09 | PM.IMPN ---
Progress Note: A&P Assessment and Plan (1) Pneumonia due to COVID-19 virus: Code(s): U07.1 - COVID-19; J12.89 - Other viral pneumonia Status: Acute Assessment and Plan: 03/15/20 16:09 patient is a 59-year-old female was positive COVID-19 on 02/27 and since then patient having fever fatigue and hypoxia with exertion however at rest patient does not require any oxygen, we have started the patient on dexamethasone and remdesivir even though she is outside the window of the treatment in an effort to to help patient improve faster, patient being hypoxic with exertion and elevated D-dimer, V/Q scan was done which does showed the probability of pulmonary emboli, and patient with COVID has high risk of pulmonary emboli started the patient on Lovenox, will switch her over to oral anticoagulation tomorrow eliquis. in emergency depart patient was tachycardia adenosine was given for SVT, and heart rate tranded down, most likely secondary to hypoxia fever and fatigue, repeat chest x-ray on 03/14 showed persisting pnuemonia most likely covid pneumonia however to cover for any secondary bacterial pneumonia as patient has a fever and shortness of breath with exertion, started the patient on levofloxacin, patient has remained stable, Patient remains clinically stable without any fever or shortness of on room air will discharge the patient home tomorrow. (2) Sepsis: Qualifiers: Sepsis type: sepsis due to unspecified organism Sepsis acute organ dysfunction status: without acute organ dysfunction Qualified Code(s): A41.9 - Sepsis, unspecified organism Code(s): A41.9 - Sepsis, unspecified organism Status: Acute Assessment and Plan: most likely secondary to COVID-19 pneumonia (3) Supraventricular tachycardia: Code(s): I47.1 - Supraventricular tachycardia Status: Acute Assessment and Plan: most likely secondary to fever fatigue and hypoxia patient was treated with adenosine, now on metoprolol will monitor (4) Elevated d-dimer: Code(s): R79.89 - Other specified abnormal findings of blood chemistry Status: Acute Assessment and Plan: V/Q scan shows pulmonary emboli and patient with a COVID are at high risk of blood clot will treat with Lovenox and further recommendation to Subjective Date/time seen: 03/15/20 16:09 patient is a 59-year-old female was positive COVID-19 on 02/27 and since then patient having fever fatigue and hypoxia with exertion however at rest patient does not require any oxygen, we have started the patient on dexamethasone and remdesivir even though she is outside the window of the treatment in an effort to to help patient improve faster, patient being hypoxic with exertion and elevated D-dimer, V/Q scan was done which does showed the probability of pulmonary emboli, and patient with COVID has high risk of pulmonary emboli started the patient on Lovenox, will switch her over to oral anticoagulation tomorrow eliquis. in emergency depart patient was tachycardia adenosine was given for SVT, and heart rate tranded down, most likely secondary to hypoxia fever and fatigue, repeat chest x-ray on 03/14 showed persisting pnuemonia most likely covid pneumonia however to cover for any secondary bacterial pneumonia as patient has a fever and shortness of breath with exertion, started the patient on levofloxacin, patient has remained stable, Patient remains clinically stable without any fever or shortness of on room air will discharge the patient home tomorrow. Review of Systems Review of Systems: All systems reviewed & are unremarkable except as noted in HPI and below Exam Narrative: Exam Narrative: temperature is 98.3 pulse 95, respiratory 18, pulse ox is 95% on room air, blood pressure 121/93 Patient is comfortable, NAD HEENT: eyes are clear and none icteric LUNGS: normal respiratory effort ABD: not distended Lower extremities: no edema SKIN: no
[2020-03-15] MEDS: REMDESIVIR 100 MG/NS 250 ML 100 MG/250 ML BAG 250 MG IVPB (18:33)
[2020-03-15] MEDS: SODIUM CHLORIDE 2% OP SOLN 15 ML BTL 1 DROP EACH EYE (18:33)
[2020-03-15] MEDS: APIXABAN 5 MG TABLET 10 MG PO (20:14)
[2020-03-16] VITALS: BP 158/78; PULSE 101; PULSE 106; RESP 16; TEMP 36.6; O2SAT 94
[2020-03-16 04:00] VITALS: BP 136/96; PULSE 76; PULSE 94; RESP 16; TEMP 36.4; O2SAT 95
[2020-03-16 06:33] LABS: Basophils Percent Auto 0.2 % (0.2-1.2); Hematocrit 37.6 % (37.0-47.0); Hemoglobin 12.9 g/dL (12.0-15.0); Immature Granulocyte Absolute 0.17 K/mm3 (0.00-0.031); Immature Granulocyte Percent A 1.9 % (0-0.5); Lymphocytes Absolute Auto 0.93 K/mm3 (0.9-3.2); Lymphocytes Percent Auto 10.6 % (18.3-44.2); Mean Corpuscular HGB Conc 34.3 g/dl (32-36); Mean Corpuscular Volume 87.4 fl (80-100); Mean Platelet Volume 9.7 fl (7.4-10.4); Monocytes Absolute Auto 0.7 K/mm3 (0.1-0.6); Monocytes Percent Auto 8.2 % (2.6-8.5); Neutrophils Percent Auto 79.1 % (45.5-73.1); Platelet Count Result 363 k/mm3 (150-375); Red Cell Distribution Width 12.9 % (11.5-14.5); White Blood Count 8.8 K/mm3 (4.5-10.0)
[2020-03-16 06:54] LABS: Alanine Aminotransferase 93 U/L (4-35); Albumin Level 2.8 g/dL (3.5-5.1); Alkaline Phosphatase 91 U/L (38-126); Anion Gap 5 mmol/L (8-16); Aspartate Amino Transferase 47 U/L (14-36); Bilirubin,Total 0.6 mg/dL (0.2-1.3); Blood Urea Nitrogen 16 mg/dL (7-17); Carbon Dioxide 32 mmol/L (22-30); Chloride 102 mmol/L (98-107); Estimated CRCL calculation 84 ml/min; Estimated Glomerular Filt Rate > 60; Glucose 122 mg/dL (65-105); Potassium 3.8 mmol/L (3.4-5.0); Sodium 139 mmol/L (137-145)
[2020-03-16 08:00] VITALS: BP 120/70; PULSE 82; PULSE 86; RESP 16; TEMP 36.8; O2SAT 96
[2020-03-16] MEDS: DEXAMETHASONE SOD PHOS INJ 4 MG/ML VIAL 6 MG IV PUSH (09:09)
[2020-03-16] MEDS: SODIUM CHLORIDE 2% OP SOLN 15 ML BTL 1 DROP EACH EYE (09:09)
[2020-03-16] MEDS: BENZONATATE 100 MG CAPSULE PO (09:09)
[2020-03-16] MEDS: APIXABAN 5 MG TABLET 10 MG PO (09:09)
[2020-03-16 12:00] VITALS: BP 130/68
[2020-03-16 12:38] VITALS: BP 129/109; PULSE 76; RESP 16; O2SAT 95
--- NOTE | 2020-03-16 12:39 | PM.DS ---
DS: Admitting Diagnosis Admitting Diagnosis Admitting Diagnosis: COVID Pneumonia DS: Discharge Diagnosis Discharge Diagnosis (1) Pneumonia due to COVID-19 virus: Code(s): U07.1 - COVID-19; J12.89 - Other viral pneumonia Status: Acute Assessment and Plan: 03/15/20 16:09 patient is a 59-year-old female was positive COVID-19 on 02/27 and since then patient having fever fatigue and hypoxia with exertion however at rest patient does not require any oxygen, we have started the patient on dexamethasone and remdesivir even though she is outside the window of the treatment in an effort to to help patient improve faster, patient being hypoxic with exertion and elevated D-dimer, V/Q scan was done which does showed the probability of pulmonary emboli, and patient with COVID has high risk of pulmonary emboli started the patient on Lovenox, will switch her over to oral anticoagulation tomorrow eliquis. in emergency depart patient was tachycardia adenosine was given for SVT, and heart rate tranded down, most likely secondary to hypoxia fever and fatigue, repeat chest x-ray on 03/14 showed persisting pnuemonia most likely covid pneumonia however to cover for any secondary bacterial pneumonia as patient has a fever and shortness of breath with exertion, started the patient on levofloxacin, patient has remained stable, Patient remains clinically stable without any fever or shortness of on room air will discharge the patient home tomorrow. (2) Sepsis: Qualifiers: Sepsis acute organ dysfunction status: without acute organ dysfunction Sepsis type: sepsis due to unspecified organism Qualified Code(s): A41.9 - Sepsis, unspecified organism Code(s): A41.9 - Sepsis, unspecified organism Status: Acute Assessment and Plan: most likely secondary to COVID-19 pneumonia (3) Supraventricular tachycardia: Code(s): I47.1 - Supraventricular tachycardia Status: Acute Assessment and Plan: most likely secondary to fever fatigue and hypoxia patient was treated with adenosine, now on metoprolol will monitor (4) Elevated d-dimer: Code(s): R79.89 - Other specified abnormal findings of blood chemistry Status: Acute Assessment and Plan: V/Q scan shows pulmonary emboli and patient with a COVID are at high risk of blood clot will treat with Lovenox and further recommendation to DS: Summary Hospital Course Reason for hospitalization: Chief complaint: COVID Pneumonia Narrative: This is a 59-year-old female with no significant past medical history who presented to the hospital tonight with intermittent fevers, increased shortness of breath, dry sporadic cough and generalized weakness for the past 2 weeks. Associated symptoms included diarrhea and diaphoresis. The patient tested positive for stuart virus on February 28, 2020. the patient was evaluated emergency room and did not require any supplemental oxygen. She was found to be tachycardic with heart rate in the 120s. D-dimer was elevated and the patient underwent a V/Q study as she is allergic to iodine. V/Q scan demonstrated multiple bilateral perfusion defects corresponding to chest x-ray abnormalities. chest x-ray revealed patchy bilateral mid and lower lung infiltrates consistent with bilateral pneumonia. the patient was treated with oral potassium secondary to hypokalemia and shortly afterwards developed supraventricular tachycardia. She was treated with adenosine 6 mg as well as metoprolol IV which converted the patient back into a sinus rhythm. During her episode of SVT the patient did experience palpitations but denied any significant chest pain. She has no other complaints. Hospital Course: patient is a 59-year-old female was positive COVID-19 on 02/27 and since then patient having fever fatigue and hypoxia with exertion however at rest patient does not require any oxygen, we have started the patient on dexamethasone
[2020-03-16 12:40] VITALS: TEMP 36.4
--- NOTE | 2020-03-16 15:08 | PC.NURSE ---
Pt is A&O x 4. Pt has discharge orders. pt has had IV removed, tele removed, and discharge paperwork reviewed. Opportunities for questions provided, and pt exhibited a good understanding of discharge instructions. Pt assisted to a wheelchair and taken to the front of the building by staff. Pt assisted to her daughter's car.
== END 2020-03-16 15:15 | disposition home or self-care (01) | DRG 871 ==
LOC: ANHED 20:55 → ANH3MEDSUR 21:14 → ANHICU 23:27 → ANH3MEDSUR 03-14 10:22 → ANHICU 03-18 09:35
PROVIDERS: Physician Assistant; Admitting Provider Family Medicine; Emergency Provider Family Medicine; PCP Family Medicine; Visit Provider Family Medicine
DX: A41.89 Other specified sepsis (principal); U07.1 COVID-19; J12.89 Other viral pneumonia; I47.1 Supraventricular tachycardia; E87.6 Hypokalemia; R09.02 Hypoxemia; Z96.653 Presence of artificial knee joint, bilateral
CPT/HCPCS: 36415; 71045; 76705; 78580; 80048; 80053; 81001; 84460; 85025; 85027; 85380; 93005; 96361; 96365; 96374; 96375; 99285; A9270; A9540; G0378; J0131; J0153; J1100; J1650; J1956; J7030

== ENCOUNTER → 2020-12-04 12:23 | Outpatient (CLI) | payer BC, OTHER, SELFPAY ==
--- NOTE | ~2020-12-04 | XR_ITS ---
XR chest 2V DATE: 12/04/2020 12:47 INDICATION: Cough TECHNIQUE: 2 views COMPARISON: 03/14/2020 portable AP chest 03/11/2020 portable AP chest 01/11/2014 2 view chest FINDINGS: Normal heart size. Moderate hiatal hernia. No hilar or mediastinal enlargement. No pulmonary infiltrate or consolidation, pleural effusion or pulmonary vascular congestion or pneumo thorax. IMPRESSION: No active cardiac pulmonary disease Hiatal hernia Reviewed, dictated and finalized at location A.
--- NOTE | ~2020-12-04 | MM_ITS ---
EXAMINATION: MM screening homero BI w sharlene HISTORY: Screening mammogram TECHNIQUE: Craniocaudal and mediolateral oblique 3-D tomosynthesis images were obtained and synthetic 2-D images were generated. CAD analysis was submitted and interpreted. COMPARISON: 01/25/2016, 07/29/2013, 03/27/2012 bilateral digital screening mammogram BREAST PARENCHYMAL COMPOSITION: There are scattered areas of fibroglandular density. FINDINGS: Stable mild fibroglandular asymmetry. There is no evidence of suspicious mass, calcificatio n, or architectural distortion to suggest malignancy in either breast. There has been no suspicious i nterval change. IMPRESSION: 1. No mammographic evidence of malignancy. 2. Recommend routine screening mammography in one year. BI-RADS Category 2: Benign finding(s). Reviewed, dictated and finalized at location A.
== END ==
PROVIDERS: PCP Family Medicine; Visit Provider Family Medicine
DX: Z12.31 Encounter for screening mammogram for malignant neoplasm of breast (principal); R05 Cough; Z86.16 Personal history of COVID-19; R06.2 Wheezing; K44.9 Diaphragmatic hernia without obstruction or gangrene
CPT/HCPCS: 71046; 77063; 77067

== ENCOUNTER 2021-08-13 16:17 | Outpatient (CLI) | payer BC, OTHER, SELFPAY ==
--- NOTE | ~2021-08-13 | XR_ITS ---
EXAMINATION: XR hip RT min 2V DATE: 08/13/2021 16:36 INDICATION: Right hip pain. TECHNIQUE: 3 views of right hip were obtained. COMPARISON: None. FINDINGS: Bone alignment is normal. No fracture. There is mild right hip osteoarthritis. IMPRESSION: 1. Mild right hip osteoarthritis. Reviewed, dictated and finalized at location A.
== END 2021-08-13 16:18 | disposition home or self-care (01) ==
PROVIDERS: PCP Family Medicine; Visit Provider Family Medicine
DX: M16.11 Unilateral primary osteoarthritis, right hip (principal)
CPT/HCPCS: 73502

== ENCOUNTER 2021-12-30 21:47 | Emergency (ER) | payer BC, OTHER, SELFPAY ==
--- NOTE | ~2021-12-30 | XR_ITS ---
EXAMINATION: XR elbow RT min 3V DATE: 12/30/2021 22:17 INDICATION: Right elbow pain and swelling. TECHNIQUE: 4 views of right elbow were obtained. COMPARISON: None. FINDINGS: Bone alignment is normal. No fracture. Joint spaces are normal. No elbow joint effusion. Th ere is soft tissue swelling overlying the olecranon, consistent with bursitis. IMPRESSION: 1. Olecranon bursitis. Reviewed, dictated and finalized at location A. IMPRESSION: 1. Olecranon bursitis.
[2021-12-30 21:50] VITALS: BP 152/105; PULSE 93; RESP 16; TEMP 36.4; O2SAT 98
--- NOTE | 2021-12-30 22:10 | ED.EXTPRO ---
HPI - Extremity Problem General Chief complaint: Extremity Problem,Nontraumatic Stated complaint: redness/swelling of right elbow Time Seen by Provider: 12/30/21 21:57 History of Present Illness HPI Narrative: Patient is a 61-year-old female here for evaluation of atraumatic right elbow swelling, redness and discomfort over the past 12 hours. She states the pain is not there unless she extends her elbow. She is able to move the elbow but states it is painful. Patient states that the symptoms have increased in nature since onset, she was originally going to wait for primary visit but states that she wanted to be evaluated sooner. She has not attempted any medication for her pain. She denies any trauma to the area or known bug bites. She denies any fevers, chills, nausea, vomiting. Related Data Allergies Allergy/AdvReac Type Severity Reaction Status Date / Time aspirin Allergy Mild Other Verified 12/30/21 21:52 Penicillins Allergy Mild Other Verified 12/30/21 21:52 codeine Allergy Gastrointestinal Verified 12/30/21 21:52 Upset iodine Allergy Rash Verified 12/30/21 21:52 Latex, Natural Rubber Allergy Rash Verified 12/30/21 21:52 Review of Systems Review of Systems: Gen: Denies fevers or chills Eyes: Denies eye pain or visual change ENT: Denies congestion Respiratory: Denies shortness of breath or cough CV: Denies chest pain or palpitations GI: Denies abdominal pain nausea, emesis or diarrhea : denies burning, urgency, frequency or hematuria Musculoskeletal: Reports right elbow pain. Denies back pain or muscle pain Neuro: Denies numbness, tingling, weakness or focal weakness Skin: Denies rash Except as documented, all other systems reviewed and negative PMFSH Surgical History Surgical History History of bilateral knee replacement Social History Social History Smoking status: Never smoker Alcohol intake: never Substance use: never Substance use type: does not use Spiritual care concerns: No Exam Narrative: APPEARANCE: Well appearing, no pain in distress, well-nourished. Head: Normocephalic and atraumatic. EYES: PERRLA/EOMI, conjunctivae clear NOSE: No nasal drainage EARS: External ear normal in appearance THROAT: Oropharynx is clear. Mucous membranes are moist. NECK: Supple. No adenopathy, no masses. RESPIRATORY: Airway patent, respirations nonlabored. Clear to auscultation bilaterally, no rales, rhonchi, wheezing. CARDIOVASCULAR: Regular rate and rhythm without murmurs, rubs, or gallops. ABDOMINAL: Normoactive bowel sounds. Soft, nontender, nondistended. No rebound tenderness or guarding. MUSCULOSKELETAL: r elbow has area of patchy erythema overlying the olecranon that is fluctuant, slightly tender to palpation. FROM in elbow. No break in skin integrity. NEURO: Normal speech. No focal neurologic deficits. SKIN: Skin is warm and dry. No rashes. PSYCHIATRIC: Normal affect/mood. Course Vital Signs Vital signs: Vital Signs Temperature 97.5 F L 12/30/21 21:50 Pulse Rate 93 12/30/21 21:50 Respiratory Rate 16 12/30/21 21:50 Blood Pressure 152/105 H 12/30/21 21:50 Pulse Oximetry 98 12/30/21 21:50 Oxygen Delivery Room Air 12/30/21 21:50 Temperature 97.5 F L 12/30/21 21:50 Pulse Rate 93 12/30/21 21:50 Respiratory Rate 16 12/30/21 21:50 Blood Pressure 152/105 H 12/30/21 21:50 Pulse Oximetry 98 12/30/21 21:50 Oxygen Delivery Room Air 12/30/21 21:50 MDM - Extremity (Nontraumatic) MDM Narrative Medical decision making narrative: 61-year-old female here for evaluation of right elbow pain, swelling and redness for the past day that is atraumatic in nature. Here, she is nontoxic-appearing, normal vital signs, she does have a small area of fluctuance overlying her right elbow that appears consistent with olecranon bursitis. XR confirms suspicion. D
== END 2021-12-30 22:41 | disposition home or self-care (01) ==
LOC: ANHED 22:23
PROVIDERS: Emergency Provider Emergency Medicine; PCP Family Medicine
DX: M70.21 Olecranon bursitis, right elbow (principal); Z96.653 Presence of artificial knee joint, bilateral
CPT/HCPCS: 73080; 99283

== ENCOUNTER 2022-01-06 22:01 | Emergency (ER) | payer BC, OTHER, SELFPAY ==
--- NOTE | ~2022-01-06 | XR_ITS ---
EXAMINATION: XR chest 2V DATE: 01/06/2022 23:57 INDICATION: Cough. Left infrascapular pain. TECHNIQUE: Frontal and lateral views of the chest were obtained. COMPARISON: Chest 2 views 12/04/2020 FINDINGS: There is mild atelectasis in the lower lung zones. No pleural effusion or pneumothorax. The heart size is normal. There is a moderate-sized hiatal hernia. IMPRESSION: 1. Mild atelectasis in the lower lung zones. 2. Moderate-sized hiatal hernia. Reviewed, dictated and finalized at location A.
[2022-01-06 22:10] VITALS: BP 132/91; PULSE 125; RESP 18; TEMP 36.6; O2SAT 99
--- NOTE | 2022-01-06 22:49 | ECG_ITS ---
Measurements Intervals [place] Rate: 102 P: 17 [place]: 150 QRS: 37 QRSD: 102 T: -2 QT: 345 QTc: 449 Interpretive Statements SINUS TACHYCARDIA POSSIBLE LEFT ATRIAL ENLARGEMENT [-0.1mV P WAVE IN V1/V2] INCOMPLETE RIGHT BUNDLE BRANCH BLOCK [90+ ms QRS DURATION, TERMINAL R IN V1/V2, 40+ ms S IN I/aVL/V4/V5/V6] ABNORMAL RHYTHM ECG COMPARED TO ECG 03/11/2020 22:37:37 NO SIGNIFICANT CHANGES Electronically Signed On 01-07-2022 12:45:09 CDT by Tejinder Wilkinson M.D.
--- NOTE | 2022-01-06 23:10 | ED.GENADULT ---
HPI - General Adult General Chief complaint: Extremity Injury, Upper Stated complaint: left flank pain Time Seen by Provider: 01/06/22 22:31 History of Present Illness HPI narrative: Patient is a 61-year-old female who presents the emergency department with chief complaint of left back pain. The patient states that today she started having pain just medial to the scapula on the left side of her chest. The patient states the pain is worse with inspiration and worse with movement. Patient states she feels as though she cannot get a good deep breath. The patient reports that she had no trauma reports no fever no cough. The patient reports that when she had COVID she had an abnormal VQ scan and was treated with anticoagulants for 6 months. Related Data Allergies Allergy/AdvReac Type Severity Reaction Status Date / Time aspirin Allergy Mild Other Verified 01/06/22 22:03 Penicillins Allergy Mild Other Verified 01/06/22 22:03 codeine Allergy Gastrointestinal Verified 01/06/22 22:03 Upset iodine AdvReac Mild Rash Verified 01/06/22 22:03 Latex, Natural Rubber AdvReac Mild Rash Verified 01/06/22 22:03 Review of Systems Review of Systems: A 10 system review of systems was completed on the patient and is negative except for what is stated in the HPI. Nursing and ancillary documentation was reviewed. [facility] Surgical History Surgical History History of bilateral knee replacement Social History Social History Smoking status: Never smoker Alcohol intake: never Substance use: never Substance use type: does not use Spiritual care concerns: No Exam Narrative: GENERAL: Well-appearing, well-nourished, and in no acute distress. HEAD: Normocephalic, atraumatic. EYES: PERRLA and EOMI. ENT: Nares clear, no rhinorrhea or epistaxis. Mucous membranes moist. NECK: Supple. CHEST: Clear to auscultation. No respiratory distress. HEART: Regular rate and rhythm. No murmur heard. Normal peripheral pulses. ABDOMEN: Soft, nontender, nondistended, normal active bowel sounds. EXTREMITIES: Normal range of motion. No edema. SKIN: Warm, dry, no rash. NEURO: No focal deficits. Alert and oriented x3. PSYCH: Normal mood and affect. Course Course Emergency Course: EKG is sinus tachycardia rate of [address] elevation or ST depression QRS is 102 ms Chest x-ray shows no focal infiltrate. Patient's D-dimer was negative this makes the patient low risk from a PE standpoint. Vital Signs Vital signs: Vital Signs Temperature 36.6 C 01/06/22 22:10 Pulse Rate 125 H 01/06/22 22:10 Respiratory Rate 18 01/06/22 22:10 Blood Pressure 132/91 H 01/06/22 22:10 Pulse Oximetry 99 01/06/22 22:10 Oxygen Delivery Room Air 01/06/22 22:10 Temperature 36.6 C 01/06/22 22:10 Pulse Rate 91 01/07/22 00:55 Respiratory Rate 16 01/07/22 00:55 Blood Pressure 116/87 01/07/22 00:55 Pulse Oximetry 95 01/07/22 00:55 Oxygen Delivery Room Air 01/06/22 22:10 Medical Decision Making Vital Signs Vital Signs: Vital Signs Temperature 36.6 C 01/06/22 22:10 Pulse Rate 125 H 01/06/22 22:10 Respiratory Rate 18 01/06/22 22:10 Blood Pressure 132/91 H 01/06/22 22:10 Pulse Oximetry 99 01/06/22 22:10 Oxygen Delivery Room Air 01/06/22 22:10 Temperature 36.6 C 01/06/22 22:10 Pulse Rate 91 01/07/22 00:55 Respiratory Rate 16 01/07/22 00:55 Blood Pressure 116/87 01/07/22 00:55 Pulse Oximetry 95 01/07/22 00:55 Oxygen Delivery Room Air 01/06/22 22:10 Lab Data Result diagrams: 01/06/22 23:06 01/06/22 23:06 Labs: Lab Results 01/06/22 01/06/22 01/06/22 Range/Units 23:06 23:06 23:06 WBC 7.4 (4.5-10.0) K/mm3 RBC 5.38 (4.2-5.4) M/mm3 Hgb 16.3 H D (12.0-15.0) g/dL Hct 48.7 H (37.0-47.0) % MCV 90.5 (80-100) f
[2022-01-06 23:14] LABS: Basophils Percent Auto 0.5 % (0.2-1.2); Eosinophils Absolute Auto 0.1 K/mm3 (0-0.3); Eosinophils Percent Auto 1.5 % (0-4.4); Hematocrit 48.7 % (37.0-47.0); Hemoglobin 16.3 g/dL (12.0-15.0); Immature Granulocyte Absolute 0.01 K/mm3 (0.00-0.031); Immature Granulocyte Percent A 0.1 % (0-0.5); Lymphocytes Absolute Auto 1.63 K/mm3 (0.9-3.2); Mean Corpuscular HGB Conc 33.5 g/dl (32-36); Mean Corpuscular Hemoglobin 30.3 pg (26-34); Mean Corpuscular Volume 90.5 fl (80-100); Mean Platelet Volume 10.7 fl (7.4-10.4); Monocytes Absolute Auto 0.9 K/mm3 (0.1-0.6); Monocytes Percent Auto 12.7 % (2.6-8.5); Neutrophils Absolute Auto 4.7 K/mm3 (1.3-6.7); Neutrophils Percent Auto 63.2 % (45.5-73.1); Platelet Count Result 224 k/mm3 (150-375); Red Blood Count 5.38 M/mm3 (4.2-5.4); Red Cell Distribution Width 13.3 % (11.5-14.5); White Blood Count 7.4 K/mm3 (4.5-10.0)
[2022-01-06] MEDS: MORPHINE SULFATE (*CRX) 4 MG/ML INJ IV PUSH (23:16)
[2022-01-06 23:25] LABS: INR 1.1; Partial Thromboplastin Time 28.2 SECONDS (22.3-36.8); Prothrombin Time 13.5 Seconds (11.1-14.7)
[2022-01-06 23:38] LABS: D Dimer 0.33 ug/mL (<0.48)
[2022-01-06 23:42] LABS: Troponin I < 0.012 ng/mL (0.000-0.034)
[2022-01-07] LABS: Alanine Aminotransferase 20 U/L (6-35); Albumin Level 4.6 g/dL (3.5-5.1); Alkaline Phosphatase 83 U/L (38-126); Anion Gap 10 mmol/L (8-16); Aspartate Amino Transferase 22 U/L (14-36); Bilirubin,Total 1.1 mg/dL (0.2-1.3); Blood Urea Nitrogen 16 mg/dL (7-17); Calcium 8.8 mg/dL (8.4-10.2); Carbon Dioxide 26 mmol/L (22-30); Chloride 101 mmol/L (98-107); Estimated CRCL calculation 48 ml/min; Estimated Glomerular Filt Rate 50; Glucose 99 mg/dL (65-110); Potassium 4.1 mmol/L (3.4-5.0); Sodium 137 mmol/L (137-145)
[2022-01-07 00:01] VITALS: BP 123/96; PULSE 105; RESP 15; O2SAT 96
[2022-01-07] MEDS: HYDROmorphone HCL INJ (*CRX) 1 MG/ML SYR IV PUSH (00:34)
[2022-01-07 00:35] LABS: Procalcitonin 0.1 ng/mL
[2022-01-07 00:55] VITALS: BP 116/87; PULSE 91; RESP 16; O2SAT 95
== END 2022-01-07 01:00 | disposition home or self-care (01) ==
PROVIDERS: Emergency Provider Emergency Medicine; PCP Family Medicine
DX: R09.1 Pleurisy (principal); M25.512 Pain in left shoulder; Z86.16 Personal history of COVID-19; Z96.653 Presence of artificial knee joint, bilateral; R00.0 Tachycardia, unspecified; I45.10 Unspecified right bundle-branch block; R94.31 Abnormal electrocardiogram [ECG] [EKG]; K44.9 Diaphragmatic hernia without obstruction or gangrene
CPT/HCPCS: 36415; 71046; 80053; 83605; 83735; 84145; 84484; 85025; 85380; 85610; 85730; 93005; 96374; 96375; 99284; J1170; J2270

== ENCOUNTER → 2022-05-13 10:48 | Outpatient (CLI) | payer BC, OTHER, SELFPAY ==
--- NOTE | ~2022-05-13 | CT_ITS ---
CT Scan of the Chest without Contrast: Clinical Indication: Chest pain Technique: Contiguous sections were acquired throughout the chest without intravenous contrast. Dose reduction technique was used on this scan by utilizing automated exposure control and iterative recon struction technique. The dose-length product (DLP) was 214.75 mGy-cm. Findings: There is no evidence of any significant mediastinal, hilar or axillary lymphadenopathy. The mediastin al soft tissues appear normal. Moderate hiatal hernia noted. There is no evidence of pleural or pericardial effusion. The lungs are clear. No pulmonary nodules or infiltrates are noted. Images through the upper abdomen reveal 3 cm calcified gallstone. Impression: Clear lungs. Moderate hiatal hernia. Cholelithiasis. Reviewed, dictated and finalized at location . T EDUCATOR Impression: Clear lungs. Moderate hiatal hernia. Cholelithiasis.
== END ==
PROVIDERS: PCP Family Medicine; Visit Provider Internal Medicine
DX: U07.1 COVID-19 (principal); R07.9 Chest pain, unspecified; K44.9 Diaphragmatic hernia without obstruction or gangrene; K80.20 Calculus of gallbladder without cholecystitis without obstruction
CPT/HCPCS: 71250

== ENCOUNTER 2022-05-19 08:35 | Outpatient (CLI) | payer BC, OTHER, SELFPAY ==
--- NOTE | 2022-05-19 | ECHO_ITS ---
Patient Info Name: Viri Torres Age: 62 years : 1960 Gender: Female Ht: 64 in Wt: 170 lbs BSA: 1.89 m2 HR: 91 bpm BP: 131 / 97 mmHg Heart Rhythm: Sinus Rhythm Exam Date: 05/19/2022 9:10 AM Exam Location: [facility] Patient Status: Outpatient Admit Date: 05/19/2022 Staff Ordering Physician: HollyEsteban MD Retouching Operator: Esme Chávez RDCS Attending Provider: Khoa, Esteban Holcomb MD Referring Physician: Khoa MCGEE; Exam Type: CA echo doppler color flow Study Info Indications - covid 19 Complete two-dimensional, color flow and Doppler transthoracic echocardiogram is performed. Summary 1. Complete two-dimensional, color flow and Doppler transthoracic echocardiogram is performed. 2. Left ventricular systolic function is normal, estimated at 55-60%. 3. The left ventricular diastolic function is grade I diastolic dysfunction. 4. Right ventricular systolic function is normal. 5. There is mild aortic valve calcification. 6. There is mild tricuspid valve regurgitation. Left Ventricle Left ventricular chamber dimension is normal. Left ventricular systolic function is normal, estimated at 55-60%. There is no increased left ventricular wall thickness. The left ventricular diastolic function is grade I diastolic dysfunction. Right Ventricle Right ventricular chamber dimension is normal. Right ventricular systolic function is normal. Left Atria Left atrial chamber dimension is normal. Right Atria Right atrial chamber dimension is normal. Atrial Septum Intact interatrial septum visualized by color flow imaging. Aortic Valve The aortic valve is trileaflet. There is no aortic valve stenosis. There is no aortic valve regurgitation. There is mild aortic valve calcification. Pulmonic Valve The pulmonic valve is not well visualized. Mitral Valve The mitral valve has normal leaflets. There is no mitral valve stenosis. There is trace mitral valve regurgitation. Tricuspid Valve The tricuspid valve leaflets are normal. There is mild tricuspid valve regurgitation. Pericardium/Pleural There is no pericardial effusion. Aorta The aortic root size at the sinus of Valsalva is normal. Left Ventricular Outflow Tract Name Value Normal LVOT 2D LVOT Diameter 2.0 cm LVOT Doppler LVOT Peak Gradient 2 mmHg LVOT Mean Gradient 2 mmHg LVOT VTI 15 cm LVOT VTI/AV VTI Ratio 0.9 LVOT Stroke Volume 45 ml LVOT CO 4.3 l/min LVOT CI 2.3 l/min/m2 Mitral Valve Name Value Normal MV Doppler MV Peak Gradient 5 mmHg MV Mean Gradient 2 mmHg M
--- NOTE | 2022-05-19 14:28 | WPDPFTINT ---
PFT Procedure Performed PFT Procedure Performed Plethysmography (Lung Vol) Diffusing Cap (DLCO) Flow Vol Loop Spirometry w/o Bronchodil PFT Interpretation Lung volumes were measured with the body plethysmography method. Lung volumes are unremarkable. Spirometry showed normal expiratory flow rates and a normal FEV1 to FVC ratio 79%. No post bronchodilator study carried out. Lung diffusion capacity is within the normal range at 99% predicted. The flow-volume loop is unremarkable. Impression: Spirometry, lung volumes, and lung diffusion capacity all within the normal range.
== END 2022-05-19 08:36 | disposition home or self-care (01) ==
PROVIDERS: PCP Family Medicine; Visit Provider Internal Medicine
DX: R00.0 Tachycardia, unspecified (principal); R07.89 Other chest pain; U07.1 COVID-19; M54.6 Pain in thoracic spine; I08.2 Rheumatic disorders of both aortic and tricuspid valves
CPT/HCPCS: 93306; 94375; 94726; 94729

== ENCOUNTER 2022-05-23 02:28 | Emergency (ER) | payer BC, OTHER, SELFPAY ==
[2022-05-23] VITALS (13 sets, daily range): BP systolic 117–183; BP diastolic 75–120; PULSE 82–113; RESP 16–21; TEMP 36.8–37; O2SAT 94–100
--- NOTE | ~2022-05-23 | XR_ITS ---
EXAMINATION: XR chest 1V portable DATE: 05/23/2022 04:46 INDICATION: Chest pain. Nausea and vomiting. TECHNIQUE: A single frontal view of the chest was obtained. COMPARISON: Chest 2 views 01/06/2022, chest CT 05/13/2022 FINDINGS: There is no pneumonia, pleural effusion, or pneumothorax. The heart size is normal. There i s a moderate-sized hiatal hernia. IMPRESSION: 1. Moderate-sized hiatal hernia. Reviewed, dictated and finalized at location A. RNATIONAL RELATIONS TEACHER
--- NOTE | ~2022-05-23 | CT_ITS ---
EXAMINATION: CT brain wo con DATE: 05/23/2022 04:25 INDICATION: Headache. TECHNIQUE: Computed tomography (CT) of the head was performed without intravenous contrast. The mA wa s adjusted according to patient size. Iterative reconstruction technique was employed. The dose-lengt h product was 605.33 mGy-cm. COMPARISON: None FINDINGS: There is no intracranial hemorrhage, acute infarction, or abnormal intracranial mass lesion . The ventricles are normal in size. There is mild mucosal thickening in the paranasal sinuses. The o rbits are normal. The mastoid air cells are normal. IMPRESSION: 1. Normal brain. Reviewed, dictated and finalized at location A. H CARE WORKER IMPRESSION: 1. Normal brain.
--- NOTE | 2022-05-23 02:47 | ECG_ITS ---
Measurements Intervals [place] Rate: 90 P: 44 MO: 158 QRS: 59 QRSD: 100 T: 4 QT: 346 QTc: 425 Interpretive Statements SINUS RHYTHM INCOMPLETE RIGHT BUNDLE BRANCH BLOCK BORDERLINE ST-T WAVE ABNORMALITY- INFERIOR LEADS BORDERLINE ECG COMPARED TO ECG 01/06/2022 23:12:51 SINUS RHYTHM NOW PRESENT Electronically Signed On 05-23-2022 6:42:59 TUB TENDER by Giuseppe Kwon D.O.
--- NOTE | 2022-05-23 03:33 | ED.GENADULT ---
HPI - General Adult General Chief complaint: Nausea/Vomiting/Diarrhea Stated complaint: vomiting, HTN, chest pain Time Seen by Provider: 05/23/22 02:40 History of Present Illness HPI narrative: this is a 62-year-old female presenting ED with a chief complaint of headache and nausea and vomiting. at 9:00 p.m. last night patient started having multiple episodes of nonbloody nonbilious nausea and vomiting. After she started vomiting she developed a severe headache that was maximal at onset, cover her entire head and described as a squeezing sensation. She has had a headache like this once before approximately a year ago but it is not her typical headache. Patient also developed chest pain across her entire chest that she describes as tingling, non radiating, and has rapidly improved til it resolved. Related Data Allergies Allergy/AdvReac Type Severity Reaction Status Date / Time aspirin Allergy Mild Other Verified 01/06/22 22:03 Penicillins Allergy Mild Other Verified 01/06/22 22:03 codeine Allergy Gastrointestinal Verified 01/06/22 22:03 Upset iodine AdvReac Mild Rash Verified 01/06/22 22:03 Latex, Natural Rubber AdvReac Mild Rash Verified 01/06/22 22:03 [facility] Surgical History Surgical History History of bilateral knee replacement Social History Social History Smoking status: Never smoker Alcohol intake: never Substance use: never Substance use type: does not use Spiritual care concerns: No Exam Narrative: APPEARANCE: No apparent distress. Head: atraumatic. EYES: EOMI, Pleural NOSE: Atraumatic NECK: Trachea midline RESPIRATORY: No increased rate of breathing, clear to auscultation bilaterally CARDIOVASCULAR: RRR, no peripheral edema ABDOMINAL: nontender, no guarding or rebound MUSCULOSKELETAl: No obvious deformities NEURO: Alert. Cranial nerves 2-12 grossly intact. Sensation light touch, motor function cerebellar function intact for 4 extremities. Gait exam was normal. SKIN:: Warm, dry. Normal color PSYCHIATRIC: Normal affect Course Vital Signs Vital signs: Vital Signs Temperature 98.6 F 05/23/22 02:32 Pulse Rate 88 05/23/22 02:32 Respiratory Rate 16 05/23/22 02:32 Blood Pressure 162/115 H 05/23/22 02:32 Pulse Oximetry 99 05/23/22 02:32 Oxygen Delivery Room Air 05/23/22 02:32 Temperature 98.2 F 05/23/22 02:35 Pulse Rate 113 H 05/23/22 05:05 Respiratory Rate 21 H 05/23/22 05:05 Blood Pressure 139/100 H 05/23/22 05:54 Pulse Oximetry 94 05/23/22 05:05 Oxygen Delivery Room Air 05/23/22 02:35 Medical Decision Making [facility] Narrative Medical decision making narrative: -Presentation: this is a 62-year-old female presenting with the sudden onset of nausea/vomiting,headache and chest pain. It seems that the nausea and vomiting preceded the other symptoms, however she does state that the headache was maximal in onset and different from her typical headaches. CT head, chest x-ray EKG and lab work will be obtained. -DDX includes but is not limited to: nausea and vomiting, spontaneous intracranial hemorrhage, ACS, migraine, gastritis/gastroenteritis -Co-morbidities complicating care: fibromyalgia -External Chart Review: review of echocardiogram from 06/06, CT chest from 05/13/22 which showed a 3 cm calcified gallstone -Hx from independent Sources: -Discussion of Management/Consultants: none -Independent interpretation of studies: CBC was within acceptable limits. Coags were normal. Metabolic panel was normal. Troponins were within normal limits. CT head did not reveal any acute intracranial hemorrhage. Chest x-ray showed no acute cardiopulmonary process. No mediastinal air. Independent EKG interpretation: Rhythm [sinus], Rate [90], Zoe -[normal], TN -[normal], QRS [narrow], QTC [normal], T waves -[negative for c
[2022-05-23] MEDS: ACETAMINOPHEN 500 MG TABLET 1000 MG PO (03:42)
[2022-05-23] MEDS: ONDANSETRON INJ 4 MG/2 ML VIAL IV PUSH (03:43)
[2022-05-23] MEDS: SODIUM CHLORIDE 0.9% IV 1,000 ML 999 ML IV CONT (03:43)
[2022-05-23] MEDS: FAMOTIDINE 20 MG/2 ML VIAL IV PUSH (03:43)
[2022-05-23] MEDS: diphenhydrAMINE HCl INJ 50 MG/ML VIAL 25 MG IV PUSH (03:43)
[2022-05-23] MEDS: PROCHLORPERAZINE EDISYLATE 10 MG/2 ML VIAL IV PUSH (03:46)
[2022-05-23 04:09] LABS: Basophils Percent Auto 0.5 % (0.2-1.2); Eosinophils Absolute Auto 0.2 K/mm3 (0-0.3); Eosinophils Percent Auto 1.9 % (0-4.4); Hematocrit 48.7 % (37.0-47.0); Hemoglobin 16.3 g/dL (12.0-15.0); Immature Granulocyte Absolute 0.01 K/mm3 (0.00-0.031); Immature Granulocyte Percent A 0.1 % (0-0.5); Lymphocytes Absolute Auto 1.42 K/mm3 (0.9-3.2); Lymphocytes Percent Auto 16.1 % (18.3-44.2); Mean Corpuscular HGB Conc 33.5 g/dl (32-36); Mean Corpuscular Hemoglobin 30.5 pg (26-34); Mean Platelet Volume 10.9 fl (7.4-10.4); Monocytes Absolute Auto 0.8 K/mm3 (0.1-0.6); Monocytes Percent Auto 8.8 % (2.6-8.5); Neutrophils Absolute Auto 6.4 K/mm3 (1.3-6.7); Neutrophils Percent Auto 72.6 % (45.5-73.1); Platelet Count Result 233 k/mm3 (150-375); Red Blood Count 5.35 M/mm3 (4.2-5.4); White Blood Count 8.8 K/mm3 (4.5-10.0)
[2022-05-23 04:17] LABS: Anion Gap 7 mmol/L (8-16); Blood Urea Nitrogen 13 mg/dL (7-17); Calcium 9.5 mg/dL (8.4-10.2); Carbon Dioxide 30 mmol/L (22-30); Chloride 102 mmol/L (98-107); Estimated CRCL calculation 64 ml/min; Estimated Glomerular Filt Rate > 60; Glucose 112 mg/dL (65-110); Magnesium 1.6 mg/dL (1.6-2.3); Potassium 3.9 mmol/L (3.4-5.0); Sodium 139 mmol/L (137-145)
[2022-05-23 04:22] LABS: Prothrombin Time 13.1 Seconds (11.1-14.7)
[2022-05-23 04:23] LABS: Partial Thromboplastin Time 26.6 SECONDS (22.3-36.8)
[2022-05-23 04:30] LABS: Troponin I 0.021 ng/mL (0.000-0.034)
[2022-05-23 06:57] LABS: Troponin I 0.034 ng/mL (0.000-0.034)
== END 2022-05-23 07:17 | disposition home or self-care (01) ==
PROVIDERS: Emergency Provider Emergency Medicine; PCP Family Medicine
DX: R51.9 Headache, unspecified (principal); R11.2 Nausea with vomiting, unspecified; Z96.653 Presence of artificial knee joint, bilateral; M79.7 Fibromyalgia; I45.10 Unspecified right bundle-branch block; R94.31 Abnormal electrocardiogram [ECG] [EKG]
CPT/HCPCS: 36415; 70450; 71045; 80048; 83735; 84443; 84484; 85025; 85610; 85730; 93005; 96361; 96374; 96375; 99284; A9270; J0780; J1200; J2405; J7030

== ENCOUNTER 2022-06-01 12:08 | Outpatient (CLI) | payer BC, OTHER, SELFPAY ==
[2022-06-04 11:28] LABS: Erythropoietin (EPO) 12.5 mIU/mL (2.6-18.5)
[2022-06-07 13:47] LABS: CALR Exon 9 Mutation Not Detected (Not Detected); CSF3R Exon 14/17 Mutation Not Detected (Not Detected); Clinical Indication Not Given; JAK2 Exon 12 Mutation Not Detected (Not Detected); JAK2 V617F Mutation Not Detected (Not Detected); MPL Exon 10 Mutation Not Detected (Not Detected); Specimen Source Blood
== END 2022-06-01 12:09 | disposition home or self-care (01) ==
PROVIDERS: PCP Family Medicine
DX: D75.1 Secondary polycythemia (principal)
CPT/HCPCS: 36415; 81219; 81270; 81279; 81339; 81479; 82668

== ENCOUNTER → 2022-06-03 09:31 | Outpatient (CLI) | payer BC, OTHER, SELFPAY ==
--- NOTE | ~2022-06-03 | US_ITS ---
Limited Abdominal Sonogram: Real-time sonographic imaging of the right upper quadrant was performed. Clinical History: Cholelithiasis Findings: The liver appears unremarkable, with no evidence of mass lesion or bile duct dilatation. M ain portal vein demonstrates normal direction of flow. The gallbladder is partially distended, and ne fatuma completely filled with shadowing gallstones. No definite gallbladder wall thickening. The common bile duct measures 4 mm. The visualized pancreas, aorta, and IVC are unremarkable. Right kidney me asures 10.1 cm in length. No right hydronephrosis. Impression: Cholelithiasis. Reviewed, dictated and finalized at location M. T CLERKS SUPERVISOR Impression: Cholelithiasis.
== END ==
PROVIDERS: PCP Family Medicine; Visit Provider Internal Medicine
DX: K80.20 Calculus of gallbladder without cholecystitis without obstruction (principal); R07.89 Other chest pain
CPT/HCPCS: 76705

== ENCOUNTER 2023-07-29 09:49 | Outpatient (CLI) | payer BC, OTHER, SELFPAY ==
--- NOTE | 2023-07-29 | ECG_ITS ---
Measurements Intervals [place] Rate: 72 P: 53 DC: 155 QRS: 48 QRSD: 98 T: 22 QT: 385 QTc: 422 Interpretive Statements SINUS RHYTHM POSSIBLE LEFT ATRIAL ENLARGEMENT INCOMPLETE RIGHT BUNDLE BRANCH BLOCK BORDERLINE ECG COMPARED TO ECG 05/23/2022 03:08:30 NO SIGNIFICANT CHANGES Electronically Signed On 07-29-2023 17:48:02 CDT by Giuseppe Kwon D.O.
== END 2023-07-29 09:50 | disposition home or self-care (01) ==
LOC: ANHCARD 09:52
PROVIDERS: PCP Family Medicine; Visit Provider Podiatrist Foot & Ankle Surgery
DX: R93.1 Abnormal findings on diagnostic imaging of heart and coronary circulation (principal); I45.10 Unspecified right bundle-branch block; R03.0 Elevated blood-pressure reading, without diagnosis of hypertension
CPT/HCPCS: 93005

== ENCOUNTER 2023-08-04 10:43 | Outpatient (CLI) | payer BC, OTHER, SELFPAY ==
--- NOTE | ~2023-08-04 | MM_ITS ---
EXAMINATION: MM screening homero BI w sharlene HISTORY: Screening TECHNIQUE: Craniocaudal and mediolateral oblique 3-D tomosynthesis images were obtained and synthetic 2-D images were generated. CAD analysis was submitted and interpreted. COMPARISON: Comparison to multiple prior studies sequentially, with oldest reviewed study dated 01/24. BREAST PARENCHYMAL COMPOSITION: Not dense: There are scattered areas of fibroglandular density. FINDINGS: There is a developing cluster of punctate calcifications in the upper inner quadrant of the left breast, middle third. The right breast is stable without evidence for malignancy. IMPRESSION: 1. Developing left breast calcifications. 2. Magnification views are recommended. BI-RADS Category 0: Incomplete: Needs additional imaging evaluation. Reviewed, dictated and finalized at location A.
== END 2023-08-04 10:44 ==
LOC: MICIMG 10:44
PROVIDERS: PCP Nurse Practitioner; Visit Provider Nurse Practitioner
DX: Z12.31 Encounter for screening mammogram for malignant neoplasm of breast (principal); R92.8 Other abnormal and inconclusive findings on diagnostic imaging of breast
CPT/HCPCS: 77063; 77067

== ENCOUNTER 2023-08-04 11:17 | Outpatient (CLI) | payer BC, OTHER, SELFPAY ==
[2023-08-04 11:49] LABS: Basophils Percent Auto 0.4 % (0.2-1.2); Eosinophils Absolute Auto 0.2 K/mm3 (0-0.3); Eosinophils Percent Auto 3.6 % (0-4.4); Hematocrit 50.3 % (37.0-47.0); Hemoglobin 16.8 g/dL (12.0-15.0); Immature Granulocyte Absolute 0.01 K/mm3 (0.00-0.031); Immature Granulocyte Percent A 0.2 % (0-0.5); Lymphocytes Absolute Auto 1.51 K/mm3 (0.9-3.2); Lymphocytes Percent Auto 31.8 % (18.3-44.2); Mean Corpuscular HGB Conc 33.4 g/dl (32-36); Mean Corpuscular Hemoglobin 30.1 pg (26-34); Mean Corpuscular Volume 90.1 fl (80-100); Mean Platelet Volume 10.6 fl (7.4-10.4); Monocytes Absolute Auto 0.5 K/mm3 (0.1-0.6); Monocytes Percent Auto 10.1 % (2.6-8.5); Neutrophils Absolute Auto 2.6 K/mm3 (1.3-6.7); Neutrophils Percent Auto 53.9 % (45.5-73.1); Platelet Count Result 247 k/mm3 (150-375); Red Blood Count 5.58 M/mm3 (4.2-5.4); Red Cell Distribution Width 13.1 % (11.5-14.5); White Blood Count 4.8 K/mm3 (4.5-10.0)
[2023-08-04 12:02] LABS: Alanine Aminotransferase 17 U/L (6-35); Albumin Level 4.3 g/dL (3.5-5.1); Alkaline Phosphatase 76 U/L (38-126); Anion Gap 3 mmol/L (8-16); Aspartate Amino Transferase 23 U/L (14-36); Bilirubin,Total 1.2 mg/dL (0.2-1.3); Blood Urea Nitrogen 15 mg/dL (7-17); Calcium 9.1 mg/dL (8.4-10.2); Carbon Dioxide 29 mmol/L (22-30); Chloride 104 mmol/L (98-107); Cholesterol 263 mg/dL (0-200); Estimated Glomerular Filt Rate > 60; Glucose 93 mg/dL (65-110); HDL Direct 59 mg/dL; Potassium 4.3 mmol/L (3.4-5.0); Sodium 136 mmol/L (137-145); Triglycerides 175 mg/dL (<150)
[2023-08-04 12:13] LABS: LDL Cholesterol Direct 153 mg/dL
[2023-08-11 08:40] LABS: Reference Lab Test Result 1.68
== END 2023-08-04 11:18 | disposition home or self-care (01) ==
LOC: ANHLAB 11:21
PROVIDERS: PCP Nurse Practitioner; Visit Provider Family Medicine
DX: E78.5 Hyperlipidemia, unspecified (principal); Z13.0 Encounter for screening for diseases of the blood and blood-forming organs and certain disorders involving the immune mechanism; Z13.29 Encounter for screening for other suspected endocrine disorder
CPT/HCPCS: 36415; 80053; 80061; 85025

== ENCOUNTER 2023-09-05 07:43 | Outpatient (CLI) | payer BC, OTHER, SELFPAY ==
--- NOTE | ~2023-09-05 | MMUS_ITS ---
EXAMINATION: MM diagnostic mammo unilat LT, US breast LT limited HISTORY: Cluster of punctate microcalcifications in the upper inner quadrant of the left breast middl e third reported on 08/04/2023 screening mammogram examination TECHNIQUE: ML view.. ML, MLO and CC magnification views. CAD analysis was submitted and interpreted. High resolution upper inner and lower inner quadrant of the left breast ultrasound was performed. COMPARISON: 08/04/2023, 12/04/2020 bilateral screening mammogram examinations FINDINGS: MAMMOGRAPHIC FINDINGS: A cluster of grouped granular appearing microcalcifications is noted in the upper inner quadrant of t he left breast at mid depth. These are suspicious. There is heterogeneously dense stroma of the inner left breast. ULTRASOUND: 11:00 4 cm from nipple: Approximately 1.9 x 4 mm cyst. 11:00 3 cm from nipple: Parallel circumscribed hypoechoic 2.3 x 5 x 6 mm lesion, without internal vas cularity, benign in appearance. 10:00 4 cm from nipple: Irregular hypoechoic solid 2.8 x 6 x 5 mm lesion. Ultrasound-guided biopsy is recommended. 10:00 4 cm from nipple: Parallel circumscribed hypoechoic 5.8 x 2.7 x 4.5 mm lesion, no posterior sha dowing. 9:00 5 cm from nipple: 1.8 x 2.8 mm cyst IMPRESSION: 1. Irregular solid 2.8 x 6 x 5 mm mass 10:00 4 cm from nipple 2. Ultrasound-guided biopsy of this 10:00 mass is recommended, with follow-up post biopsy mammogram t o determine if this includes the suspicious granular microcalcifications noted in the upper inner sera drant of the left breast. If the microcalcifications are still present within the breast following ultrasound-guided biopsy of the 10:00 mass, and stereotactic biopsy of the microcalcifications is recommended. BI-RADS category 4, suspicious findings. Dr. Kam telephoned the report and the ultrasound-guided biopsy recommendation and possible stereotac tic biopsy on September 05, 2023 at 0907 hours to Cindy Posey Reviewed, dictated and finalized at location A. IMPRESSION: 1. Irregular solid 2.8 x 6 x 5 mm mass 10:00 4 cm from nipple 2. Ultrasound-guided biopsy of this 10:00 mass is recommended, with follow-up p ost biopsy mammogram to determine if this includes the suspicious granular micr ocalcifications noted in the upper inner quadrant of the left breast. If the microcalcifications are still present within the breast following ultras ound-guided biopsy of the 10:00 mass, and stereotactic biopsy of the microcalci fications is recommended. BI-RADS category 4, suspicious findings. Dr. Kam telephoned the report and the ultrasound-guided biopsy recommendation and possible stereotactic biopsy on September 05, 2023 at 0907 hours to Nelson Posey IMPRESSION: 1. Irregular solid 2.8 x 6 x 5 mm mass 10:00 4 cm from nipple 2. Ultrasound-guided biopsy of this 10:00 mass is recommended, with follow-up p ost biopsy mammogram to determine if this includes the suspicious granular micr ocalcifications noted in the upper inner quadrant of the left breast. If the microcalcifications are still present within the breast following ultras ound-guided biopsy of the 10:00 mass, and stereotactic biopsy of the microcalci fications is recommended. BI-RADS category 4, suspicious findings. Dr. Kam telephoned the report and the ultrasound-guided biopsy recommendation and possible stereotactic biopsy on September 05, 2023 at 0907 hours to Taty RSteve Hall
== END 2023-09-05 07:44 ==
LOC: MICIMG 07:45
PROVIDERS: PCP Family Medicine; Visit Provider Nurse Practitioner
DX: N63.22 Unspecified lump in the left breast, upper inner quadrant (principal); R92.8 Other abnormal and inconclusive findings on diagnostic imaging of breast
CPT/HCPCS: 76642; 77065

== ENCOUNTER 2023-09-22 10:02 | Outpatient (CLI) | payer BC, SELFPAY ==
--- NOTE | ~2023-09-22 | DEXA_ITS ---
Bone Density Report Name: JAZMYN BUCHANAN Age: 63 Sex: Female Ethnicity: White Date of : 1960 Indication: postmenopausal; screening for osteoporosis; height loss; Referring Provider: AKSHAT, MARI Parrish Study: Bone densitometry was performed. Exam Date: September 22, 2023 Accession number: [id number] Bone Density: Region BMD T-score Z-score Classification AP Spine (L1, L3, L4) 1.110 0.5 2.2 Normal Femoral Neck (Left) 0.708 -1.3 0.2 Osteopenia Total Hip (Left) 0.870 -0.6 0.6 Normal Femoral Neck (Right) 0.724 -1.1 0.3 Osteopenia Total Hip (Right) 0.901 -0.3 0.8 Normal Total Hip Mean 0.886 -0.5 0.7 Normal World Health Organization criteria for BMD impression classify patients as: Normal (T-score at or above -1.0), Osteopenia (T-score between -1.0 and -2.5), or Osteoporosis (T-score at or below -2.5). 10-year Fracture Risk(1): Major Osteoporotic Fracture 8.1% Hip Fracture 0.7% Reported Risk Factors: [place] (), Neck BMD=0.708, BMI=28.9 (1) FRAX(R) Version 3.08. Fracture probability calculated for an untreated patient. Fracture probability may be lower if the patient has received treatment. Clinical Information Provided by Patient: Patient maximum height was 65 Menopause Age: 48 Does not regularly consume dairy products Drinks caffeinated beverages Onset of menses at age 12 Number of children 3 Impression: The patient has low bone mass, based on the Left Femoral Neck T-score. The patient has an estimated ten-year risk of hip fracture of 0.7% and an estimated ten-year risk of major fracture of 8.1%, based on the WHO FRAX algorithm. Discussion: BONE DENSITY IS LOW AT ONE OR MORE SKELETAL SITES. This patient's lowest T-score is low at one or more skeletal sites. It meets the World Health Organization's (WHO) criteria for ?low bone mass? (T-score between -1.0 and -2.5). The patient's 10-year risk of fracture as calculated by FRAX is less than the threshold where pharmacological therapy is recommended by the National Osteoporosis Foundation (NOF). However, all treatment decisions require clinical judgment and consideration of individual patient factors, including patient preferences, comorbidities, previous drug use, risk factors not captured in the FRAX model (e.g., frailty, falls, vitamin D deficiency, increased bone turnover, interval significant decline in bone density) and possible under or overestimation of fracture risk by FRAX. The patient should follow a healthful lifestyle (good nutrition with adequate calcium and vitamin D, and appropriate weight-bearing exercise). Follow-Up: Consider repeating this study in 2 to 3 years to reassess this patient's status, or sooner if there is some new clinical indication. Reported by: ZAIN on 09/22/2023 10:15:00 AM. Reviewed, dictated and finalized at location A.
== END 2023-09-22 10:03 ==
PROVIDERS: PCP Family Medicine; Visit Provider Nurse Practitioner
DX: M85.89 Other specified disorders of bone density and structure, multiple sites (principal); Z13.820 Encounter for screening for osteoporosis
CPT/HCPCS: 77080